=== PATIENT | female | born 1940 | race Caucasian/White ===

== ENCOUNTER 2017-06-30 23:09 | Emergency (ER) | payer MEDICARE, BC ==
[~2017-06-30] VITALS: Ht 154.9 cm; Wt 73.0 kg
[2017-06-30 23:22] VITALS: BP 148/68; PULSE 65; RESP 20; TEMP 97.9; O2SAT 97
[2017-06-30] MEDS ORDERED: LIDOCAINE HCL 1% PF 30 ML VIAL INFIL ONE (23:45)
--- NOTE | 2017-06-30 23:58 | PD ---
HPI Chief Complaint: Foreign Body Time Seen by Provider: 23:41 Travel History International Travel<30 days: No Contact w/Intl Traveler<30days: No Traveled to known affect area: No History of Present Illness HPI 76-year-old female presents to the emergency department for complaint of retained splinter to the right great toe. Injury occurred approximately 2 hours prior to arrival to the emergency department. Attempts at home were unsuccessful at removing the splint her. Patient identifies that she was walking across the floor shuffling her feet in the garage and sustained a puncture wound with a retained splinter. Patient's tetanus status is uncertain. Patient denies any fall or injury. Patient takes no blood thinning agents. PFSH Past Medical History Narrative Medical Arthritis hypertension dyslipidemia CVA vertigo breast cancer appendectomy breast biopsy nursing notes reviewed Arthritis: Yes Cardiovascular Problems: Yes (HTN) High Cholesterol: Yes Diminished Hearing: No GERD: Yes Genitourinary: Yes (BLADDER SPASMS) Hypertension: Yes Neurologic: Yes (VERTIGO) Shingles: Yes Tetanus Vaccination: Unknown Influenza Vaccination: No ?: Not : 1 Para: 1 Past Surgical History Abdominal Surgery: Yes (COLON POLYPS REMOVED X2) Appendectomy: Yes Thoracic Surgery: Yes (L LUNG BIOPSY) Tonsillectomy: Yes Other Surgery: Yes (L BREAST BIOPSY) Social History Alcohol Use: No Tobacco Use: No Substance Use: No Allergies-Medications (Allergen,Severity, Reaction): Coded Allergies: penicillin G (Unverified Allergy, Severe, Anaphylaxis, 03/28/17) Review of Systems Except as stated in HPI: all other systems reviewed are Neg Physical Exam Narrative GENERAL: Well-developed well-nourished female in no acute distress no respiratory distress SKIN: Warm and dry. Attention right great toe plantar surface 2 cm long retained splinter horizontal to the long axis of the toe just under the skin surface. Capillary refill brisk and less than 2 seconds range of motion intact of the digit. MUSCULOSKELETAL: No cyanosis, or edema. Data Data Last Documented VS Vital Signs Date Time Temp Pulse Resp B/P (MAP) Pulse Ox O2 Delivery O2 Flow Rate FiO2 06/30/17 23:32 65 18 06/30/17 23:22 97.9 148/68 (94) 97 Orders Orders Lidocaine Pf 1% Inj (Xylocaine-Mpf 1% In (06/30/17 23:45) Tetanus/Diphtheria Tox Adult (Tetanus/Di (07/01/17 00:30) Sulfamet-Trimeth Ds 800-160 Mg (Bactrim (07/01/17 00:30) MDM Medical Decision Making Medical Screen Exam Complete: Yes Emergency Medical Condition: Yes Medical Record Reviewed: Yes Differential Diagnosis puncture wound of right toe with retained foreign body, splinter Narrative Course After attempting to remove the splinter with tweezer site was cleansed with Betadine 1% lidocaine plain 1 cc was injected at the site for local anesthetic effect 11 blade scalpel was used to incise along the surface of the splinter and the foreign body was removed and site was irrigated aggressively. Patient was given first dose of oral antibiotic Bactrim DS times one dose along with tetanus status update. Bulky dressing was applied patient tolerated procedure well and is stable for outpatient management Diagnosis Primary Impression: Puncture wound of toe, right Qualified Codes: S91.139A - Puncture wound without foreign body of unspecified toe(s) without damage to nail, initial encounter Referrals: Primary Care Physician call for appointment Patient Instructions: General Instructions Med/Other Pt SpecificInfo: Prescription(s) given Scripts Oxycodone-Acetaminophen (Percocet) 5-325 mg Tab 0.5-1 TAB PO Q6H Y for PAIN, #5 TAB 0 Refills Prov: Osiris Amin MD 07/01/17 Sulfamethoxazole-Trimethoprim (Bactrim DS) 800-160 Mg Tab 1 TAB PO BID for Infection, #14 TAB 0 Refills Prov: Osiris Amin MD 07/01/17 Disposition: 01 DISCHARGE HOME Condition: Stable Osiris Amin MD Jun 30, 2017 23:58
[2017-07-01] MEDS ORDERED: PERC5TAB12 PO (00:20)
[2017-07-01] MEDS ORDERED: BACT800T5 PO (00:20)
[2017-07-01] MEDS ORDERED: SULFAMETHOXAZOLE-TRIMETHOPRIM DS 800-160 MG TAB PO ONE (00:30)
[2017-07-01] MEDS ORDERED: TETANUS/DIPHTHERIA TOXOID ADULT 0.5 ML VIAL IM ONE (00:30)
[2017-07-01 00:40] VITALS: BP 138/64; PULSE 66; RESP 18; O2SAT 98
[2017-07-01] MEDS ORDERED: FLUT50SP EACH NARE (03:31)
[2017-07-01] MEDS ORDERED: MECL-62 PO (03:31)
[2017-07-01] MEDS ORDERED: VITA500T4 PO (03:31)
[2017-07-01] MEDS ORDERED: DIPH25CA PO (03:31)
[2017-07-01] MEDS ORDERED: CYAN1TAB21 SL (03:31)
[2017-07-01] MEDS ORDERED: LIDO5%T TOPICAL (03:31)
[2017-07-01] MEDS ORDERED: OXYB5TAB8 PO (03:31)
[2017-07-01] MEDS ORDERED: CALC1TAB87 PO (03:31)
[2017-07-01] MEDS ORDERED: LACT10SO47 PO (03:31)
[2017-07-01] MEDS ORDERED: ASPI81CH6 CHEW (03:31)
[2017-07-01] MEDS ORDERED: METO1TAB42 PO (03:31)
[2017-07-01] MEDS ORDERED: PRIL20TA2 PO (03:31)
[2017-07-01] MEDS ORDERED: PRAV20TA2 PO (03:31)
[2017-07-01] MEDS ORDERED: MULT-65 PO (03:31)
[2017-07-01] MEDS ORDERED: GALA4TAB PO (03:31)
== END 2017-07-01 00:55 | disposition home or self-care (01) ==
LOC: PHED 23:09
DX: S91.141A Puncture wound with foreign body of right great toe without damage to nail, initial encounter (principal); W45.8XXA Other foreign body or object entering through skin, initial encounter; Y92.008 Other place in unspecified non-institutional (private) residence as the place of occurrence of the external cause; Z88.0 Allergy status to penicillin; Z23 Encounter for immunization
CPT/HCPCS: 10120; 90471; 90714

== ENCOUNTER 2017-10-14 12:55 | Emergency (ER) | payer MEDICARE, BC ==
[~2017-10-14] VITALS: Ht 154.9 cm; Wt 74.0 kg
[~2017-10-14 12:55] MED LIST: ASPI81CH6 CHEW; BACT800T5 PO; CALC1TAB87 PO; CYAN1TAB21 SL; DIPH25CA PO; FLUT50SP EACH NARE; GALA4TAB PO; LACT10SO47 PO; LIDO5%T TOPICAL; MECL-62 PO; METO1TAB42 PO; MULT-65 PO; OXYB5TAB8 PO; PERC5TAB12 PO; PRAV20TA2 PO; PRIL20TA2 PO; VITA500T4 PO
[2017-10-14 13:00] VITALS: BP 167/74; PULSE 78; RESP 16; TEMP 98.5; O2SAT 97
--- NOTE | 2017-10-14 13:36 | PD ---
HPI Chief Complaint: Fall Time Seen by Provider: 13:04 Travel History International Travel<30 days: No Contact w/Intl Traveler<30days: No Traveled to known affect area: No History of Present Illness HPI This is a 77-year-old female with a history of breast cancer and vertigo who presents for evaluation of injuries after a fall. The patient states that earlier today, she lost her balance and fell. She struck the left side of her head. No loss of consciousness. She complains of mild pain in the posterior aspect of the left head. Mild pain at left lateral ribs. No new focal weakness , numbness, tingling. Small abrasion on dorsum of left hand with no surrounding pain. Tetanus immunization is up-to-date. Patient states that she uses both a walker and sometimes a wheelchair depending on how she is feeling for the day. She does currently have metastatic breast cancer. Symptoms are mild in severity. Onset with fall. No recent fever, vomiting, diarrhea. No chest pain or shortness of breath. PFSH Past Medical History Hx Anticoagulant Therapy: Yes (BABY ASA) Arthritis: Yes Cardiovascular Problems: Yes (HTN, CHOL) High Cholesterol: Yes Cerebrovascular Accident: Yes (CVA) Diabetes: No Diminished Hearing: No GERD: Yes Genitourinary: Yes (BLADDER SPASMS) Hypertension: Yes Neurologic: Yes (VERTIGO) Shingles: Yes Influenza Vaccination: Yes ?: Not : 1 Para: 1 Past Surgical History Abdominal Surgery: Yes (COLON POLYPS REMOVED X2) Appendectomy: Yes Thoracic Surgery: Yes (L LUNG BIOPSY) Tonsillectomy: Yes Other Surgery: Yes (L BREAST BIOPSY) Social History Alcohol Use: No Tobacco Use: No Substance Use: No Allergies-Medications (Allergen,Severity, Reaction): Coded Allergies: penicillin G (Unverified Allergy, Severe, Anaphylaxis, 10/14/17) Reported Meds & Prescriptions Reported Meds & Active Scripts Active Percocet (Oxycodone-Acetaminophen) 5-325 mg Tab 0.5-1 Tab PO Q6H PRN Bactrim DS (Sulfamethoxazole-Trimethoprim) 800-160 Mg Tab 1 Tab PO BID Reported Vitamin B-12 (Cyanocobalamin) 500 Mcg Tab 500 Mcg PO DAILY Vitamin B-12 Odt (Cyanocobalamin) 5,000 Mcg Tab 5,000 Mcg SL DAILY Prilosec (Omeprazole Magnesium) 20 Mg Tab 1 Cap PO DAILY Pravastatin 20 Mg Tab 10 Mg PO HS Ditropan (Oxybutynin Chloride) 5 Mg Tab 5 Mg PO Q12HR Multi-Vitamin Daily (Multiple Vitamin) 1 Tab Tab 1 Tab PO DAILY Metoprolol Succinate ER 24 HR (Metoprolol Succinate) 25 Mg Tab 12.5 Mg PO DAILY Meclizine (Meclizine HCl) 25 Mg Tab 12.5 Mg PO TID Lidocaine Topical (Lidocaine HCl) 5 % Oint 1 Applic TOPICAL DIRECTED Enulose Liq (Lactulose (Encephalopathy) Liq) 10 Gm/15 Ml Soln 30 Ml PO DAILY Galantamine (Galantamine Hydrobromide) 4 Mg Tab 4 Mg PO BID Fluticasone Nasal [place] 50 Mcg/Act Naspr 50 Mcg EACH NARE BID 50 mcg/spray Calcium 600 with Vitamin D (Calcium Carbonate-Cholecalciferol) 600-400 mg-Unit Tab 2 Tab PO DAILY Diphenhydramine (Diphenhydramine HCl) 25 Mg Cap 25 Mg PO HS PRN Aspirin Low Dose (Aspirin) 81 Mg Chew 81 Mg CHEW DAILY Review of Systems Except as stated in HPI: all other systems reviewed are Neg Physical Exam Narrative GENERAL: Alert, well nourished, well appearing patient resting on the bed in no acute distress. Vital Signs reviewed SKIN: Focused skin assessment warm/dry. Small skin tear on dorsum of left hand. HEAD: Atraumatic. Normocephalic. EYES: Pupils equal and round. No scleral icterus. No injection or drainage. ENT: No nasal bleeding or discharge. Mucous membranes pink and moist. NECK: Trachea midline. No JVD. Spontaneous, painless full range of motion with no meningismus CARDIOVASCULAR: Regular rate and rhythm. No murmur appreciated. Extremities warm and well perfused with bounding peripheral pulses RESPIRATORY: No accessory muscle use. Clear to auscultation. Breath sounds equal bilaterally. Breathing easily and speaking in full sentences Chest wall: No crepitus or deformity. Mild tenderness at left posterior lateral mid ribs GASTROINTESTINAL: Abdomen soft, non-tender, nondistended. Normal bowel sounds. No rigid, rebound, guarding MUSCULOSKELETAL: No obvious deformities. No clubbing. No cyanosis. No edema. Compartments are soft. Painless full range of motion of bilateral upper and lower extremities. No bony tenderness around abrasion. No midline TTP along cervical, thoracic, lumbar spine. NEUROLOGICAL: Awake and alert. No obvious cranial nerve deficits. Motor grossly within normal limits. Normal speech. Sensation intact Data Data Last Documented VS Vital Signs Date Time Temp Pulse Resp B/P (MAP) Pulse Ox O2 Delivery O2 Flow Rate FiO2 10/14/17 13:00 98.5 78 16 167/74 (105) [address] Brain W/O Iv Contrast(Rout) (10/14/17 13:17) Ct Cerv Spine W/O Contrast (10/14/17 13:17) Ribs, Uni (W/Exp Cxr-Min 3vw) (10/14/17 13:17) Spine, Thoracic-Ap/Lat/Sw(3vw) (10/14/17 13:17) Spine, Lumbar Comp W/Obliq (10/14/17 13:17) Ed Discharge Order (10/14/17 15:22) MDM Medical Decision Making Medical Screen Exam Complete: Yes Emergency Medical Condition: Yes Medical Record Reviewed: Yes Interpretation(s) Lumbar spine shows no acute process. Degenerative changes Last 24 hours Impressions Thoracic Spine X-Ray 10/14/171316 Signed Impressions: Service Date/Time: Saturday, October 14, 2017 14:22 - CONCLUSION: Negative for compression fracture. Martin Henry MD FACR Ribs X-Ray 10/14/171316 Signed Impressions: Service Date/Time: Saturday, October 14, 2017 14:22 - CONCLUSION: Negative for fracture. Negative for pneumothorax. Martin Henry MD FACR Head CT 10/14/171316 Signed Impressions: Service Date/Time: Saturday, October 14, 2017 13:44 - CONCLUSION: Negative for acute process Martin Henry MD FACR Cervical Spine CT 10/14/171316 Signed Impressions: Service Date/Time: Saturday, October 14, 2017 13:44 - CONCLUSION: Degenerative changes, negative for fracture. Martin Henry MD FACR Differential Diagnosis Fracture, contusion, sprain, subdural hematoma, abrasion, spinal injury Narrative Course The patient appears very well. She is resting comfortably in no acute distress. She was offered but declined pain medication in the emergency department. Imaging was performed. Patient has no evidence of spinal compromise or focal neurological deficits. She has been drinking fluids in the emergency department without difficulty. I counseled her and her family regarding the results of the workup. Plan for discharge with supportive care and close outpatient follow-up with primary physician in 2 days. She will continue using walker and wheelchair as needed. Patient understands the importance of close outpatient follow-up. She understands she may require further testing and treatment as an outpatient. She understands strict return indications. She is comfortable with this plan and eager to go home. Diagnosis Primary Impression: Minor head injury Qualified Codes: S00.90XA - Unspecified superficial injury of unspecified part of head, initial encounter Additional Impressions: Fall Qualified Codes: W19.XXXA - Unspecified fall, initial encounter Rib contusion Qualified Codes: S20.212A - Contusion of left front wall of thorax, initial encounter Referrals: Primary Care Physician 2 days Patient Instructions: Fall Prevention (ED), General Instructions, Head Injury ( DC), Rib Contusion (ED) Additional Instructions: Use [id number] pain medication as needed. Drink plenty of fluids to stay well hydrated. Continue using walker and wheelchair as needed. Follow-up with primary physician in 2 days for recheck. Return with worsening symptoms. Med/Other Pt SpecificInfo: No Change to Meds Disposition: 01 DISCHARGE HOME Condition: Stable Virginia Max MD Oct 14, 2017 13:36
--- NOTE | 2017-10-14 14:05 | RADRPT ---
EXAM DATE/TIME: 10/14/2017 13:44 [facility] COMPARISON: No previous studies available for comparison. INDICATIONS : Fall, head pain. RADIATION DOSE: 59.70 CTDIvol (mGy) MEDICAL HISTORY : Cerebrovascular disease. Hypertension. Hypercholesterolemia.Vertigo, CVA,Ca breast with mets. SURGICAL HISTORY : Lung bx, Left breast bx, colon polyps ENCOUNTER: Initial ACUITY: 1 day PAIN SCALE: 2/10 LOCATION: cranial TECHNIQUE: Multiple contiguous axial images were obtained of the head. Using automated exposure control and adj ustment of the mA and/or kV according to patient size, radiation dose was kept as low as reasonably a chievable to obtain optimal diagnostic quality images. DICOM format image data is available electro nically for review and comparison. FINDINGS: CEREBRUM: The ventricles are normal for age. No evidence of midline shift, mass lesion, hemorrhage or acute in farction. No extra-axial fluid collections are seen. POSTERIOR FOSSA: The cerebellum and brainstem are intact. The 4th ventricle is midline. The cerebellopontine angle i s unremarkable. EXTRACRANIAL: The visualized portion of the orbits is intact. SKULL: The calvaria is intact. No evidence of skull fracture. CONCLUSION: Negative for acute process Martin Henry MD FACR on October 14, 2017 at 14:04 Board Certified Radiologist. This report was verified electronically.
--- NOTE | 2017-10-14 14:12 | RADRPT ---
EXAM DATE/TIME: 10/14/2017 13:44 [facility] COMPARISON: No previous studies available for comparison. INDICATIONS : Fall, head pain. RADIATION DOSE: 25.98 CTDIvol (mGy) MEDICAL HISTORY : Cerebrovascular disease. Carcinoma, breast. Hypercholesterolemia.HTN,Lung bx, breast bx, colon polyps , mets SURGICAL HISTORY : Cholecystectomy. ENCOUNTER: Initial ACUITY: 1 day PAIN SCALE: 2/10 LOCATION: neck TECHNIQUE: Volumetric scanning of the cervical spine was performed. Multiplanar reconstructions in the sagittal, coronal and oblique axial planes were performed. Using automated exposure control and adjustment o f the mA and/or kV according to patient size, radiation dose was kept as low as reasonably achievable to obtain optimal diagnostic quality images. DICOM format image data is available electronically f or review and comparison. FINDINGS: Anatomic alignment. Mild degenerative changes at C1-C2 without fracture C2-C3: The bony spinal canal is normal in size. No evidence of disc bulge or herniation. The neural forami na are bilaterally patent. C3-C4: The bony spinal canal is normal in size. Mild uncinate ridging is present No evidence of disc bulge or herniation. The neural foramina are bilaterally patent. C4-C5: The bony spinal canal is normal in size. No evidence of disc bulge or herniation. The neural forami na are bilaterally patent. C5-C6: Minimal bulge is present. Neural foramen adequate. Fracture not appreciated. C6-C7: The bony spinal canal is normal in size. No evidence of disc bulge or herniation. The neural forami na are bilaterally patent. C7-T1: The bony spinal canal is normal in size. No evidence of disc bulge or herniation. The neural forami na are bilaterally patent. Sclerosis superior margin T1 CONCLUSION: Degenerative changes, negative for fracture. Martin Henry MD FACR on October 14, 2017 at 14:09 Board Certified Radiologist. This report was verified electronically.
--- NOTE | 2017-10-14 15:07 | RADRPT ---
EXAM DATE/TIME: 10/14/2017 14:22 [facility] COMPARISON: No previous studies available for comparison. INDICATIONS : Pain post fall. MEDICAL HISTORY : None. SURGICAL HISTORY : None. ENCOUNTER: Initial ACUITY: 1 day PAIN SCORE: 10/10 LOCATION: Upper back. FINDINGS: There is normal alignment of the thoracic vertebral bodies. Vertebral body height is maintained. No evidence of fracture or subluxation. Pedicles are intact at all levels. Mild degenerative changes are seen at L1-2. The paravertebral reflections are not thickened. CONCLUSION: Negative for compression fracture. Martin Henry MD FACR on October 14, 2017 at 15:06 Board Certified Radiologist. This report was verified electronically.
--- NOTE | 2017-10-14 15:07 | RADRPT ---
EXAM DATE/TIME: 10/14/2017 14:22 [facility] COMPARISON: No previous studies available for comparison. INDICATIONS : Pain post fall. MEDICAL HISTORY : None. SURGICAL HISTORY : None. ENCOUNTER: Initial ACUITY: 1 day PAIN SCORE: 10/10 LOCATION: Left Ribs. FINDINGS: Multiple views of the left ribs were performed. There is no evidence of displaced fracture. No dest ructive lesions or areas of periosteal thickening are seen. Expiratory view of the chest is negative for pneumothorax. The mediastinal structures are midline. CONCLUSION: Negative for fracture. Negative for pneumothorax. Martin Henry MD FACR on October 14, 2017 at 15:05 Board Certified Radiologist. This report was verified electronically.
--- NOTE | 2017-10-14 15:09 | RADRPT ---
EXAM DATE/TIME: 10/14/2017 14:22 [facility] COMPARISON: No previous studies available for comparison. INDICATIONS : Pain post fall. MEDICAL HISTORY : None. SURGICAL HISTORY : None. ENCOUNTER: Initial ACUITY: 1 day PAIN SCORE: 10/10 LOCATION: Lower back. FINDINGS: Degenerative changes at L1-2 and marked loss of disc space height. Mild degenerative changes at L4-5 and L5-S1. Degenerative changes of facets at L4-5 and L5-S1 SI joints are normal. CONCLUSION: Degenerative changes without fracture. Martin Henry MD FACR on October 14, 2017 at 15:07 Board Certified Radiologist. This report was verified electronically.
== END 2017-10-14 15:59 | disposition home or self-care (01) ==
LOC: PHEFT 12:55
DX: S00.90XA Unspecified superficial injury of unspecified part of head, initial encounter (principal); S20.212A Contusion of left front wall of thorax, initial encounter; S60.512A Abrasion of left hand, initial encounter; W19.XXXA Unspecified fall, initial encounter; C50.919 Malignant neoplasm of unspecified site of unspecified female breast; I10 Essential (primary) hypertension; M19.90 Unspecified osteoarthritis, unspecified site; E78.00 Pure hypercholesterolemia, unspecified; Z86.73 Personal history of transient ischemic attack (TIA), and cerebral infarction without residual deficits
CPT/HCPCS: 70450; 71101; 72072; 72110; 72125; 99284

== ENCOUNTER 2018-06-26 18:57 | Observation (INO) ==
--- NOTE | 2018-06-26 19:11 | ED ---
HPI General Chief complaint: Fall Stated complaint: Fall Time Seen by Provider: 06/26/18 19:05 Source: patient and family Mode of arrival: EMS Limitations: no limitations History of Present Illness HPI narrative: 77-year-old female with history of metastatic breast cancer on [place], followed by hematology/oncology at [facility], brought in by ambulance from home after an unwitnessed fall. Patient was found on the ground. Patient reports that she felt dizzy before falling to the ground, however she does not recall how she fell will recall the entire episode. She complains of mild posterior head, neck, and low back pain. No chest pain or dyspnea. She has been having upper respiratory symptoms including nasal congestion, postnasal drip, and slight cough, and was seen at an urgent care facility earlier today and prescribed azithromycin, however she has not yet started this medication. She denies visual disturbances. No paresthesias or motor deficits. No upper or lower extremity pain or injuries. No history of DVT or PE. She is on 81 mg of aspirin daily. No other antiplatelets or anticoagulants. Related Data Home Medications Medication Instructions Recorded Confirmed denosumab 60 mg SUBCUT QMONTH 06/26/18 06/26/18 galantamine 4 mg PO BID 06/26/18 06/26/18 letrozole 2.5 mg PO DAILY 06/26/18 06/26/18 metoprolol tartrate 50 mg PO DAILY 06/26/18 06/26/18 oxybutynin chloride 5 mg PO DAILY 06/26/18 06/26/18 palbociclib [Ibrance] 75 mg PO DAILY 06/26/18 06/26/18 pravastatin 20 mg PO DAILY 06/26/18 06/26/18 Allergies Allergy/AdvReac Type Severity Reaction Status Date / Time penicillin G Allergy Severe Anaphylaxis Unverified 10/14/17 12:59 Cephalosporins Allergy Rash, Verified 06/26/18 19:25 Generalized Review of Systems ROS: all other systems reviewed are negative [facility] Medical History Medical History Bladder incontinence (Acute) Breast CA (Acute) HTN (hypertension) (Acute) High cholesterol (Acute) Respiratory infection (Acute) Surgical History Surgical History History of appendectomy (Acute) Hx of tonsillectomy (Acute) Social History Social History Substance History: No History of Abuse Second Hand Smoke Exposure: No Smoking Status: Never smoker How Often Do You Have a Drink Containing Alcohol: Never Recent Travel in [facility] within the Last 8 Weeks: No Recent Out of Country Travel within the Last 8 Weeks: No Exam Narrative Exam Narrative: GENERAL: Well-developed, well-nourished, awake, alert, GCS 15, no apparent distress. SKIN: Focused skin assessment warm/dry. No lacerations, abrasions, or ecchymosis. HEAD: Normocephalic. Small posterior scalp hematoma without overlying skin changes with mild tenderness. EYES: Pupils equal, round, 3 mm, reactive to light. EOMI. No scleral icterus. No injection or drainage. ENT: No nasal bleeding or discharge. Mucous membranes pink and moist. NECK: Trachea midline. No JVD. Mild midline cervical spine tenderness without step-off. CARDIOVASCULAR: Regular rate and rhythm. No murmur appreciated. RESPIRATORY: No accessory muscle use. Clear to auscultation. Breath sounds equal bilaterally. GASTROINTESTINAL: Abdomen soft, non-tender, nondistended. MUSCULOSKELETAL: No obvious deformities. No clubbing. No cyanosis. No edema. Mild midline lower thoracic and lumbar spine tenderness without step-off. Pelvis is stable. Normal range of motion in all joints and extreme deformity or tenderness. NEUROLOGICAL: Awake and alert. No obvious cranial nerve deficits. Motor grossly within normal limits. Normal speech. PSYCHIATRIC: Appropriate mood and affect; insight and judgment normal. Course Initial Documented Vital Signs Temperature 97.9 F 06/26/18 19:00 Pulse Rate 75 06/26/18 19:00 Respiratory Rate 18 06/26/18 19:00 Blood Pressure 168/70 H 06/26/18 19:00 Pulse Oximetry 99 06/26/18 19:00 Last Documented Vital Signs Temperature 97.9 F 06/26/18 19:00 Pulse Rate 66 06/26/18 21:09 Respiratory Rate 18 06/26/18 21:09 Blood Pressure 151/66 H 06/26/18 21:09 Pulse Oximetry 97 06/26/18 21:09 Medical Decision Making MDM Narrative Medical decision making narrative: Labs, vitals, and imaging studies were reviewed and were reviewed with the patient and the patient's family. The patient's family were provided a copy of all CT reports, and all findings were discussed in detail. CBC is remarkable for leukopenia with WBC 2.7 as well as slight anemia with a hemoglobin of 10.5. This is likely secondary to the patient's oral chemotherapy. CMP is essentially unremarkable. UA is not suggestive of UTI. CT pulmonary angiogram is negative for PE. Patient has had upper respiratory symptoms and was seen at an urgent care facility today and diagnosed with sinusitis. She has not yet started the azithromycin. Family is concerned about treating her sinusitis. I told him that the CT head does not show significant sinusitis, however because she is immunosuppressed, I will start her on Levaquin. Patient does not recall how she got to the floor and may have had a syncopal episode. Because she is on chemotherapy, she may have cardiomyopathy which led to her syncopal episode. Given her age and history, I would like to observe her in the hospital overnight for further syncope workup. The patient and the patient's family are amenable to this plan. Case discussed with hospitalist Dr. Cesar who will admit the patient to her service. 11:20 PM: After the patient had been admitted to the medical service, the patient began to complain of left hip pain. She did not complain of this pain upon arrival to the emergency department. Patient is able to flex and extend her left hip and knee, however is tender over the left hip joint. Bilateral lower extremities are neurovascularly intact, and the skin is intact. Left hip and pelvis x-rays will be ordered. Left hip xray: CONCLUSION: Osteopenia with no acute fracture or malalignment. Medical Screen Exam Complete: Yes Emergency Medical Condition: Yes Differential Diagnosis Differential Diagnosis: Syncope, near syncope, intracranial trauma, vertebral injury, PE, anemia, UTI, URI, pneumonia, dysrrhythmia Lab Data Result diagrams: 06/26/18 19:30 06/26/18 19:30 Lab Results 06/26/18 06/26/18 06/26/18 Range/Units 19:15 19:30 19:30 CBC w Diff Auto diff final WBC 2.7 L (4.0-11.0) th/mm3 RBC 2.88 L (4.00-5.30) mil/mm3 Hgb 10.5 L (11.6-15.3) gm/dL Hct 31.6 L (35.0-46.0) % MCV 109.7 H (80.0-100.0) fL MCH 36.3 H (27.0-34.0) pg MCHC 33.1 (32.0-36.0) % RDW 14.8 (11.6-17.2) % Plt Count 180 (150-450) th/mm3 MPV 7.6 (7.0-11.0) fL Neut % (Auto) 50.0 (16.0-70.0) % Lymph % (Auto) 42.5 (9.0-44.0) % Richardson % (Auto) 5.1 (0.0-8.0) % Eos % (Auto) 1.0 (0.0-4.0) % Baso % (Auto) 1.4 (0.0-2.0) % Neut # (Auto) 1.5 L (1.8-7.7) th/mm3 Lymph # (Auto) 1.1 (1.0-4.8) th/mm3 Richardson # (Auto) 0.1 (0.0-0.9) th/mm3 Eos # (Auto) 0.0 (0.0-0.4) th/mm3 Baso # (Auto) 0.0 (0.0-0.2) th/mm3 WBC Differential . Differential Comment . PT 9.7 L (9.8-11.6) sec INR 1.0 Ratio APTT 37.8 H (23.4-31.7) sec Sodium (136-145) meq/L Potassium (3.5-5.1) meq/L Chloride (98-107) meq/L Carbon Dioxide (21.0-32.0) meq/L Anion Gap (5-15) meq/L BUN (7-18) mg/dL Creatinine (0.50-1.00) mg/dL Estimated GFR (>89) mL/min Random Glucose (74-106) mg/dL Calcium (8.5-10.1) mg/dL Magnesium (1.5-2.5) mg/dL Total Bilirubin (0.2-1.0) mg/dL AST (15-37) U/L ALT (10-53) U/L Alkaline Phosphatase (45-117) U/L Troponin I (0.02-0.05) ng/mL Total Protein (6.4-8.2) g/dL Albumin (3.4-5.0) g/dL Urine Color Yellow (Yellw/Straw) Urine Clarity Clear (Clear) Urine pH 6.0 (5.0-8.5) Ur Specific [place] Less/equal 1.005 (1.002-1.035) Urine Protein Negative (Neg-Trace) mg/dL Urine Glucose (UA) Negative (Negative) mg/dL Urine Ketones Negative (Negative) mg/dL Urine Occult Blood Trace (Negative) Urine Nitrate Negative (Negative) Urine Bilirubin Negative (Negative) Urine Urobilinogen 0.2 (Less than 2) mg/dL Ur Leukocyte Esterase Small H (Negative) Urine RBC 0-3 (0-3) /hpf Urine WBC 0-5 (0-5) /hpf Ur Squamous Epith Cells 0-5 (0-5) /hpf Ur Microscopic Review Microscopic reviewed 06/26/18 Range/Units 19:30 CBC w Diff WBC (4.0-11.0) th/mm3 RBC (4.00-5.30) mil/mm3 Hgb (11.6-15.3) gm/dL Hct (35.0-46.0) % MCV (80.0-100.0) fL MCH (27.0-34.0) pg MCHC (32.0-36.0) % RDW (11.6-17.2) % Plt Count (150-450) th/mm3 MPV (7.0-11.0) fL Neut % (Auto) (16.0-70.0) % Lymph % (Auto) (9.0-44.0) % Richardson % (Auto) (0.0-8.0) % Eos % (Auto) (0.0-4.0) % Baso % (Auto) (0.0-2.0) % Neut # (Auto) (1.8-7.7) th/mm3 Lymph # (Auto) (1.0-4.8) th/mm3 Richardson # (Auto) (0.0-0.9) th/mm3 Eos # (Auto) (0.0-0.4) th/mm3 Baso # (Auto) (0.0-0.2) th/mm3 WBC Differential Differential Comment PT (9.8-11.6) sec INR Ratio APTT (23.4-31.7) sec Sodium 141 (136-145) meq/L Potassium 3.6 (3.5-5.1) meq/L Chloride 106 (98-107) meq/L Carbon Dioxide 30.4 (21.0-32.0) meq/L Anion Gap 5 (5-15) meq/L BUN 8 (7-18) mg/dL Creatinine 0.83 (0.50-1.00) mg/dL Estimated GFR 67 L (>89) mL/min Random Glucose 107 H (74-106) mg/dL Calcium 8.2 L (8.5-10.1) mg/dL Magnesium 2.4 (1.5-2.5) mg/dL Total Bilirubin 0.2 (0.2-1.0) mg/dL AST 21 (15-37) U/L ALT 28 (10-53) U/L Alkaline Phosphatase 71 (45-117) U/L Troponin I Less than 0.02 L (0.02-0.05) ng/mL Total Protein 7.3 (6.4-8.2) g/dL Albumin 3.7 (3.4-5.0) g/dL Urine Color (Yellw/Straw) Urine Clarity (Clear) Urine pH (5.0-8.5) Ur Specific [place] (1.002-1.035) Urine Protein (Neg-Trace) mg/dL Urine Glucose (UA) (Negative) mg/dL Urine Ketones (Negative) mg/dL Urine Occult Blood (Negative) Urine Nitrate (Negative) Urine Bilirubin (Negative) Urine Urobilinogen (Less than 2) mg/dL Ur Leukocyte Esterase (Negative) Urine RBC (0-3) /hpf Urine WBC (0-5) /hpf Ur Squamous Epith Cells (0-5) /hpf Ur Microscopic Review Imaging Data Radiologist's impression: Cervical Spine CT 06/26/18 19:05 CONCLUSION: 1. No fracture or dislocation. 2. Degenerative changes. 3. Focal area of sclerosis involving the T1 vertebral body is stable from the prior exam. Exact etiology is uncertain. The 8 months of stability suggests a benign etiology such as an atypical appearing bone island. Chest CTA 06/26/18 19:05 CONCLUSION: 1. The study is negative for pulmonary embolism. Chest X-Ray 06/26/18 19:05 CONCLUSION: Small nonspecific opacity in the left costophrenic angle, atelectasis versus fluid. No evidence of pneumothorax. Head CT 06/26/18 19:05 CONCLUSION: 1. No acute intracranial abnormality. 2. Stable chronic small vessel ischemic change. . Lumbar Spine CT 06/26/18 19:05 CONCLUSION: 1. No evidence of fracture, compression deformity, or spondylolisthesis. 2. Mild disc degeneration with bulging. Thoracic Spine CT 06/26/18 19:05 CONCLUSION: 1. No acute abnormality. 2. Old compression fracture of T10 is stable. 3. Focus of sclerosis involving the T1 vertebral body is stable. Stability from the prior examination suggests a benign etiology. This may simply relate to a simple bone island. Hip X-Ray 06/26/18 23:21 CONCLUSION: Osteopenia with no acute fracture or malalignment. ECG Data Attestation: I personally reviewed and interpreted this ECG as follows: Discharge Plan Discharge Disposition Patient Disposition: 30 Still Patient Discharge Condition Condition: Stable Discharge Details Diagnosis: Syncope, Leukopenia, URI (upper respiratory infection) Physicians Team ED Provider: Sumanth Wright Primary Care Provider: Jannet Larsen Attending Provider: Tata Cesar Status ED Status: Admitted Observation Patient
[2018-06-26 19:23] LABS: Bilirubin,Urine Negative (Negative); Clarity,Urine Clear (Clear); Color,Urine Yellow (Yellw/Straw); Glucose,Urine (UA) Negative (Negative); Leukocyte Esterase,Urine Small (Negative); Nitrite,Urine Negative (Negative); Specific Gravity,Urine Less/Equal 1.005 (1.002-1.035); Urobilinogen,Urine 0.2 mg/dL (Less than 2)
[2018-06-26 19:27] LABS: RBC,Urine 0-3 /hpf (0-3); WBC,Urine 0-5 /hpf (0-5)
[2018-06-26 19:28] LABS: Squamous Epithelial Cell,Urine 0-5 /hpf (0-5)
--- NOTE | 2018-06-26 19:45 | XR ---
EXAM DATE: 06/26/2018 7:35 PM EST AGE/SEX: 77 years / Female INDICATIONS: Shortness of breath post fall. CLINICAL DATA: This is the patient's initial encounter. Patient reports that signs and symptoms have been present for 1 day and indicates a pain score of 0/10. MEDICAL/SURGICAL HISTORY: Hypertension. None. COMPARISON: [facility], RIBS LEFT(W PA CXR MIN 3VWS), 10/14/2017. . FINDINGS: The lungs are symmetrically aerated. There is a small opacity in the region of the lateral left costo phrenic angle which could represent atelectasis, infiltrate, or pleural effusion. The right hemidiaph ragm is well delineated. The heart is normal in size. No evidence of pneumothorax. Osseous structures are grossly intact. CONCLUSION: Small nonspecific opacity in the left costophrenic angle, atelectasis versus fluid. No evidence of pn eumothorax. Electronically signed by: Andrews Bhatt MD 06/26/2018 7:44 PM EST
[2018-06-26 19:48] LABS: Baso % (Auto) 1.4 % (0.0-2.0); Hematocrit 31.6 % (35.0-46.0); Hemoglobin 10.5 gm/dL (11.6-15.3); Lymph # (Auto) 1.1 th/mm3 (1.0-4.8); Lymph % (Auto) 42.5 % (9.0-44.0); Mean Corpuscular HGB Conc 33.1 % (32.0-36.0); Mean Corpuscular Hemoglobin 36.3 pg (27.0-34.0); Mean Corpuscular Volume 109.7 fL (80.0-100.0); Mean Platelet Volume 7.6 fL (7.0-11.0); Mono # (Auto) 0.1 th/mm3 (0.0-0.9); Mono % (Auto) 5.1 % (0.0-8.0); Neut # (Auto) 1.5 th/mm3 (1.8-7.7); Platelet Count 180 th/mm3 (150-450); Red Blood Count 2.88 mil/mm3 (4.00-5.30); Red Cell Distribution Width 14.8 % (11.6-17.2); White Blood Count 2.7 th/mm3 (4.0-11.0)
[2018-06-26 19:54] LABS: Chloride 106 meq/L (98-107); Potassium 3.6 meq/L (3.5-5.1); Sodium 141 meq/L (136-145)
[2018-06-26 19:57] LABS: Albumin 3.7 g/dL (3.4-5.0); Anion Gap 5 meq/L (5-15); Calcium 8.2 mg/dL (8.5-10.1); Carbon Dioxide 30.4 meq/L (21.0-32.0); Glucose,Random 107 mg/dL (74-106); Magnesium 2.4 mg/dL (1.5-2.5)
[2018-06-26 19:58] LABS: Blood Urea Nitrogen 8 mg/dL (7-18)
[2018-06-26 20:00] LABS: Activated Partial Thrombo Time 37.8 sec (23.4-31.7); Alanine Aminotransferase 28 U/L (10-53); Aspartate Aminotransferase 21 U/L (15-37); Prothrombin Time 9.7 sec (9.8-11.6)
[2018-06-26 20:01] LABS: Glomerular Filtration Rate 67 mL/min (>89)
[2018-06-26 20:02] LABS: Total Protein 7.3 g/dL (6.4-8.2)
[2018-06-26 20:03] LABS: Alkaline Phosphatase 71 U/L (45-117)
--- NOTE | 2018-06-26 21:02 | CT ---
EXAM DATE: 06/26/2018 8:57 PM EST AGE/SEX: 77 years / Female INDICATIONS: Trauma. Fall. CLINICAL DATA: This is the patient's initial encounter. Patient reports that signs and symptoms have been present for 1 day and indicates a pain score of 4/10. MEDICAL/SURGICAL HISTORY: Carcinoma, breast. Hypertension. Appendectomy. RADIATION DOSE: 59.83 CTDI (mGy) COMPARISON: [facility], CT BRAIN W/O CONTRAST, 10/14/2017. . TECHNIQUE: CT of the head without contrast. Using automated exposure control and adjustment of the mA and/or kV according to patient size, radiation dose was kept as low as reasonably achievable to ob tain optimal diagnostic quality images. DICOM format image data is available electronically for revi ew and comparison. FINDINGS: Cerebrum: Periventricular low attenuation change is unchanged. The ventricles are normal for age. N o evidence of midline shift, mass lesion, hemorrhage or acute infarction. No extraaxial fluid collec tions are seen. Posterior Fossa: The cerebellum and brainstem are intact. The 4th ventricle is midline. The cerebe llopontine angle is unremarkable. Extracranial: The visualized portion of the orbits is intact. Skull: The calvaria is intact. No evidence of skull fracture. CONCLUSION: 1. No acute intracranial abnormality. 2. Stable chronic small vessel ischemic change. . Electronically signed by: Andrews Charlton MD 06/26/2018 9:01 PM EST
--- NOTE | 2018-06-26 21:08 | CT ---
EXAM DATE: 06/26/2018 8:59 PM EST AGE/SEX: 77 years / Female INDICATIONS: Trauma. Fall. CLINICAL DATA: This is the patient's initial encounter. Patient reports that signs and symptoms have been present for 1 day and indicates a pain score of 4/10. MEDICAL/SURGICAL HISTORY: Carcinoma, breast. Hypertension. Appendectomy. RADIATION DOSE: 26.28 CTDI (mGy) COMPARISON: [facility], CT CERVICAL SPINE W/O CONTRAST, 10/14/2017. . TECHNIQUE: Contiguous axial images were obtained using helical multirow detector technique. The vol umetric data was post-processed with multiplanar reconstruction in oblique axial, sagittal, and coron al planes. Using automated exposure control and adjustment of the mA and/or kV according to patient s ize, radiation dose was kept as low as reasonably achievable to obtain optimal diagnostic quality adarsh ges. DICOM format image data is available electronically for review and comparison. FINDINGS: Vertebrae: Normal vertebral body height. An area of sclerosis involving the superior endplate of T1. No bony destruction. This appearance is stable from the prior study. Alignment: Normal. No subluxation. Calcified plaque involving the carotid arteries bilaterally. C2-3: Mild central bulge. No abutment of the cord or central canal stenosis. Bony uncovertebral hype rtrophy without significant neural foraminal narrowing.. C3-4: Mild central bulge without central canal stenosis. Bony uncovertebral hypertrophy without neur al foraminal narrowing. C4-5: Mild central bulge without central canal stenosis. Bony uncovertebral hypertrophy with mild na rrowing the right neural foramen. The left remains patent.. C5-6: The bony spinal canal is normal in size. No evidence of disc bulge or herniation. The neural foramina are bilaterally patent. C6-7: The bony spinal canal is normal in size. No evidence of disc bulge or herniation. The neural foramina are bilaterally patent. C7-T1: The bony spinal canal is normal in size. No evidence of disc bulge or herniation. The neura l foramina are bilaterally patent. CONCLUSION: 1. No fracture or dislocation. 2. Degenerative changes. 3. Focal area of sclerosis involving the T1 vertebral body is stable from the prior exam. Exact etio logy is uncertain. The 8 months of stability suggests a benign etiology such as an atypical appearing bone island. Electronically signed by: Andrews Charlton MD 06/26/2018 9:07 PM EST
--- NOTE | 2018-06-26 21:12 | CT ---
EXAM DATE: 06/26/2018 9:05 PM EST AGE/SEX: 77 years / Female INDICATIONS: Trauma. Fall. CLINICAL DATA: This is the patient's initial encounter. Patient reports that signs and symptoms have been present for 1 day and indicates a pain score of 4/10. MEDICAL/SURGICAL HISTORY: Carcinoma, breast. Hypertension. Appendectomy. RADIATION DOSE: 17.07 CTDI (mGy) COMPARISON: No prior exams available for comparison. TECHNIQUE: Volumetric scanning was performed using a multi-row detector CT scanner during bolus infu jessie of 100 ml Omnipaque 350 (iohexol) nonionic water-soluble contrast as a cumulative dose for mult iple exams. The data was post processed with a variety of visualization algorithms including full vol ume maximum intensity projection and sliding thin slab reformation. Using automated exposure control and adjustment of the mA and/or kV according to patient size, radiation dose was kept as low as reaso nably achievable to obtain optimal diagnostic quality images. DICOM format image data is available e lectronically for review and comparison. FINDINGS: Pulmonary Arteries: No filling defects are seen in the pulmonary arteries out to the subsegmental ve ssels. The left and right pulmonary arteries are normal in diameter. Lung: No pneumothorax. No infiltrates seen. In particular, no focal opacity in the left costophrenic angle. Effusion: None. Mediastinum: No evidence of mediastinal or hilar adenopathy. Other: No fracture seen. CONCLUSION: 1. The study is negative for pulmonary embolism. Electronically signed by: Andrews Bhatt MD 06/26/2018 9:10 PM EST
--- NOTE | 2018-06-26 21:15 | CT ---
EXAM DATE: 06/26/2018 9:09 PM EST AGE/SEX: 77 years / Female INDICATIONS: Trauma. Fall. CLINICAL DATA: This is the patient's initial encounter. Patient reports that signs and symptoms have been present for 1 day and indicates a pain score of 4/10. MEDICAL/SURGICAL HISTORY: Carcinoma, breast. Hypertension. Appendectomy. RADIATION DOSE: 24.86 CTDI (mGy) COMPARISON: No prior exams available for comparison. TECHNIQUE: Contiguous axial images were acquired with a multirow detector CT scanner without contras t. Multiplanar reconstructions in the sagittal and coronal plane were also performed. Using automate d exposure control and adjustment of the mA and/or kV according to patient size, radiation dose was k ept as low as reasonably achievable to obtain optimal diagnostic quality images. DICOM format image data is available electronically for review and comparison. FINDINGS: There is normal alignment of the vertebral bodies of the lumbar spine and preservation of vertebral b saud height. Anterior interspace narrowing and endplate sclerosis is present at L1 to. The posterior e lements are in normal alignment without evidence of pars defect. Asymmetric sclerosis in the posterio r right SI joint. Mild facet joint hypertrophy L4-S1. No fracture seen. T12-L1: The thecal sac has a normal diameter. No evidence of disc bulge or protrusion. The neural foramina are patent bilaterally. L1-L2: Mild bulging of the disc flattens the left margin of the thecal sac. Neural foramen remain pa tent. No disc protrusion seen. L2-L3: Mild broad-based bulging of the disc without significant deformity of the thecal sac. No foca l disc protrusion. L3-L4: Mild broad-based bulging of the disc without significant deformity of the thecal sac. The chuck ral foramina are patent. L4-L5: Mild bulging of the disc without significant deformity of the thecal sac. The neural foramina patent. L5-S1: The thecal sac has a normal diameter. No evidence of disc bulge or protrusion. The neural f oramina are patent bilaterally. CONCLUSION: 1. No evidence of fracture, compression deformity, or spondylolisthesis. 2. Mild disc degeneration with bulging. Electronically signed by: Andrews Bhatt MD 06/26/2018 9:14 PM EST
--- NOTE | 2018-06-26 21:42 | CT ---
EXAM DATE: 06/26/2018 9:32 PM EST AGE/SEX: 77 years / Female INDICATIONS: Trauma. Fall. CLINICAL DATA: This is the patient's initial encounter. Patient reports that signs and symptoms have been present for 1 day and indicates a pain score of 4/10. MEDICAL/SURGICAL HISTORY: Carcinoma, breast. Hypertension. Appendectomy. RADIATION DOSE: 0.0 CTDI (mGy) ; Reconstructed from previous dataset, no dose COMPARISON: [facility], CT CERVICAL SPINE W/O CONTRAST, 10/14/2017.. Lumbar spine x-rays 10/14/2017 . TECHNIQUE: Contiguous axial images were acquired using a multirow detector CT scanner after intraven ous administration of 100 ml Omnipaque 350 (iohexol) nonionic water-soluble contrast as a cumulative dose for multiple exams. Multiplanar reconstruction in the sagittal and coronal planes was perform ed. Using automated exposure control and adjustment of the mA and/or kV according to patient size, r adiation dose was kept as low as reasonably achievable to obtain optimal diagnostic quality images. DICOM format image data is available electronically for review and comparison. FINDINGS: Vertebrae: An old compression deformity of T10 is unchanged. There is 10-20% loss of height of the s uperior endplate.. A focal area of sclerosis is seen involving the superior endplate of the T1 verteb ral body Alignment: Normal. No subluxation. Post Contrast: No abnormal areas of enhancement are seen in the cord, dural or paraspinal regions. T1 - T2: Normal. T2 - T3: The thecal sac has a normal diameter. No evidence of disc bulge or protrusion. T3 - T4: The thecal sac has a normal diameter. No evidence of disc bulge or protrusion. T4 - T5: The thecal sac has a normal diameter. No evidence of disc bulge or protrusion. T5 - T6: The thecal sac has a normal diameter. No evidence of disc bulge or protrusion. T6 - T7: The thecal sac has a normal diameter. No evidence of disc bulge or protrusion. T7 - T8: The thecal sac has a normal diameter. No evidence of disc bulge or protrusion. T8 - T9: The thecal sac has a normal diameter. No evidence of disc bulge or protrusion. T9 - T10: The thecal sac has a normal diameter. No evidence of disc bulge or protrusion. T10 - T11: The thecal sac has a normal diameter. No evidence of disc bulge or protrusion. T11 - T12: The thecal sac has a normal diameter. No evidence of disc bulge or protrusion. T12 - L1: The thecal sac has a normal diameter. No evidence of disc bulge or protrusion. CONCLUSION: 1. No acute abnormality. 2. Old compression fracture of T10 is stable. 3. Focus of sclerosis involving the T1 vertebral body is stable. Stability from the prior examinatio n suggests a benign etiology. This may simply relate to a simple bone island. Electronically signed by: Andrews Charlton MD 06/26/2018 9:41 PM EST
[2018-06-26] MEDS ORDERED: levoFLOXacin 750 MG Tablet PO ONE (22:09)
[2018-06-26] MEDS ORDERED: Acetaminophen 500 MG Tablet PO ONE (23:52)
--- NOTE | 2018-06-27 | XR ---
EXAM DATE: 06/26/2018 11:47 PM EST AGE/SEX: 77 years / Female INDICATIONS: Status post fall, left hip pain. CLINICAL DATA: This is the patient's initial encounter. Patient reports that signs and symptoms have been present for 1 day and indicates a pain score of 8/10. MEDICAL/SURGICAL HISTORY: None. None. COMPARISON: [facility], CT LUMBAR SPINE W/O CONTRAST, 06/26/2018. . FINDINGS: Bony structures are intact and in normal alignment. Joints are intact without dislocation or signifi cant arthropathy. There is mild osteopenia. Excreted contrast is noted in the bladder. Soft tissues a re unremarkable. No radiopaque foreign bodies seen. CONCLUSION: Osteopenia with no acute fracture or malalignment. Electronically signed by: Darío Wallace MD 06/26/2018 11:59 PM EST
[2018-06-27 06:20] LABS: Baso % (Auto) 0.7 % (0.0-2.0); Eos % (Auto) 1.1 % (0.0-4.0); Hematocrit 31.5 % (35.0-46.0); Hemoglobin 10.4 gm/dL (11.6-15.3); Lymph # (Auto) 1.1 th/mm3 (1.0-4.8); Lymph % (Auto) 32.3 % (9.0-44.0); Mean Corpuscular HGB Conc 33.2 % (32.0-36.0); Mean Corpuscular Hemoglobin 36.4 pg (27.0-34.0); Mean Corpuscular Volume 109.4 fL (80.0-100.0); Mean Platelet Volume 7.4 fL (7.0-11.0); Mono # (Auto) 0.2 th/mm3 (0.0-0.9); Mono % (Auto) 5.7 % (0.0-8.0); Neut % (Auto) 60.2 % (16.0-70.0); Platelet Count 169 th/mm3 (150-450); Red Blood Count 2.87 mil/mm3 (4.00-5.30); Red Cell Distribution Width 15.1 % (11.6-17.2); White Blood Count 3.3 th/mm3 (4.0-11.0)
[2018-06-27 06:24] LABS: Potassium 3.7 meq/L (3.5-5.1)
[2018-06-27 06:29] LABS: Carbon Dioxide 27.4 meq/L (21.0-32.0)
--- NOTE | 2018-06-27 09:12 | US ---
EXAM DATE: 06/27/2018 9:03 AM EST AGE/SEX: 77 years / Female INDICATIONS: Syncope. CLINICAL DATA: This is the patient's initial encounter. Patient reports that signs and symptoms have been present for 1 day and indicates a pain score of 0/10. MEDICAL/SURGICAL HISTORY: Hypertension. Hypercholesterolemia. Metastatic breast cancer. Appen dectomy. Tonsillectomy. COMPARISON: No prior exams available for comparison. VELOCITY PARAMETERS: ICA/CCA Ratio: Right 0.9 , Left 1.1 ICA: Right 97 cm/sec, Left 126 cm/sec CCA: Right 110 cm/sec, Left 110 cm/sec ECA: Right 154 cm/sec, Left 114 cm/sec Vertebral: Right 48 cm/sec antegrade, Left 43 cm/sec antegrade FINDINGS: Right Carotid: Mild arteriosclerotic plaque is visualized.The waveforms are within normal limits. Left Carotid: Mild arteriosclerotic plaque is visualized. The waveforms are within normal limits. Other: None. CONCLUSION: 1. Right Internal Carotid Artery: Findings indicate <50% stenosis. 2. Left Internal Carotid Artery: Findings indicate <50% stenosis. Electronically signed by: Otf Sanchez MD 06/27/2018 9:11 AM EST
--- NOTE | 2018-06-27 12:31 | ECG ---
Date Performed: 06/26/2018 Time Performed: 19:20:34 PTAGE: 77 years EKG: Sinus rhythm NORMAL ECG NO PREVIOUS TRACING DOCTOR: Otf Wilson Interpretating Date/Time 06/27/2018 12:29:00
--- NOTE | 2018-06-27 15:33 | P.PNIM ---
Subjective Interval history: Patient is sitting upright in bed. She does not have any complaints today. Physical Exam Vital signs: Vital Signs 06/26/18 19:00 06/26/18 19:47 06/26/18 20:00 Temperature 97.9 F Pulse Rate 75 68 64 Respiratory Rate 18 18 Blood Pressure 168/70 H 140/67 Pulse Oximetry 99 06/26/18 21:09 06/26/18 22:39 06/26/18 23:00 Temperature Pulse Rate 66 69 68 Respiratory Rate 18 18 Blood Pressure 151/66 H 153/78 H Pulse Oximetry 97 06/27/18 01:10 06/27/18 04:00 06/27/18 08:00 Temperature 96.5 F L 97.4 F L 97.8 F Pulse Rate 73 69 83 Respiratory Rate 16 16 20 Blood Pressure 194/79 H 145/67 H 160/67 H Pulse Oximetry 97 97 93 L 06/27/18 12:00 Temperature 98.1 F Pulse Rate 89 Respiratory Rate 20 Blood Pressure 136/72 Pulse Oximetry 94 L Intake & Output 06/26/18 06/27/18 06/27/18 18:59 06:59 18:59 Intake Total 420 / 420 Output Total 1200 / 1200 Balance -780 / -780 Weight 75.4 kg Intake: Oral 420 / 420 Output: Urine 1200 / 1200 Other: # Voids 2 Weight On Admission 75.4 kg Narrative: General patient in no acute distress HEENT extraocular movements are intact, clear oropharyngeal mucosa, no JVD Cardiovascular S1-S2 audible, RRR, no murmurs rubs or gallops Respiratory clear to auscultation bilaterally Abdomen soft, nontender, nondistended, normal bowel sounds Extremities no edema 2+ distal pulses in bilateral upper and lower extremities Neuro cranial nerves II through XII intact Results - Labs CBC & Chem 7: 06/27/18 06:00 06/27/18 06:00 Laboratory Results - last 24 hr 06/26/18 06/26/18 06/26/18 19:15 19:30 19:30 CBC w Diff Auto diff final WBC 2.7 L RBC 2.88 L Hgb 10.5 L Hct 31.6 L MCV 109.7 H MCH 36.3 H MCHC 33.1 RDW 14.8 Plt Count 180 MPV 7.6 Neut % (Auto) 50.0 Lymph % (Auto) 42.5 [place] % (Auto) 5.1 Eos % (Auto) 1.0 Baso % (Auto) 1.4 Neut # (Auto) 1.5 L Lymph # (Auto) 1.1 [place] # (Auto) 0.1 Eos # (Auto) 0.0 Baso # (Auto) 0.0 WBC Differential . Differential Comment . PT 9.7 L INR 1.0 APTT 37.8 H Sodium Potassium Chloride Carbon Dioxide Anion Gap BUN Creatinine Estimated GFR Random Glucose Calcium Magnesium Total Bilirubin AST ALT Alkaline Phosphatase Troponin I Total Protein Albumin Urine Color Yellow Urine Clarity Clear Urine pH 6.0 Ur Specific [place] Less/equal 1.005 Urine Protein Negative Urine Glucose (UA) Negative Urine Ketones Negative Urine Occult Blood Trace Urine Nitrate Negative Urine Bilirubin Negative Urine Urobilinogen 0.2 Ur Leukocyte Esterase Small H Urine RBC 0-3 Urine WBC 0-5 Ur Squamous Epith Cells 0-5 Ur Microscopic Review Microscopic reviewed 06/26/18 06/27/18 06/27/18 19:30 06:00 06:00 CBC w Diff Auto diff final WBC 3.3 L RBC 2.87 L Hgb 10.4 L Hct 31.5 L MCV 109.4 H MCH 36.4 H MCHC 33.2 RDW 15.1 Plt Count 169 MPV 7.4 Neut % (Auto) 60.2 Lymph % (Auto) 32.3 [place] % (Auto) 5.7 Eos % (Auto) 1.1 Baso % (Auto) 0.7 Neut # (Auto) 2.0 Lymph # (Auto) 1.1 [place] # (Auto) 0.2 Eos # (Auto) 0.0 Baso # (Auto) 0.0 WBC Differential . Differential Comment . PT INR APTT Sodium 141 142 Potassium 3.6 3.7 Chloride 106 108 H Carbon Dioxide 30.4 27.4 Anion Gap 5 7 BUN 8 9 Creatinine 0.83 0.76 Estimated GFR 67 L 74 L Random Glucose 107 H 97 Calcium 8.2 L 8.0 L Magnesium 2.4 Total Bilirubin 0.2 AST 21 ALT 28 Alkaline Phosphatase 71 Troponin I Less than 0.02 L Total Protein 7.3 Albumin 3.7 Urine Color Urine Clarity Urine pH Ur Specific [place] Urine Protein Urine Glucose (UA) Urine Ketones Urine Occult Blood Urine Nitrate Urine Bilirubin Urine Urobilinogen Ur Leukocyte Esterase Urine RBC Urine WBC Ur Squamous Epith Cells Ur Microscopic Review Microbiology 06/26/18 23:03 Nasal Wash Influenza Types A,B Antigen - Final Negative for FLU A and B antigen Infection due to influenza A or B cannot be ruled out since the antigen present in the sample may be below the detection limit of the test. - Imaging Impressions Cervical Spine CT 06/26/18 19:05 CONCLUSION: 1. No fracture or dislocation. 2. Degenerative changes. 3. Focal area of sclerosis involving the T1 vertebral body is stable from the prior exam. Exact etiology is uncertain. The 8 months of stability suggests a benign etiology such as an atypical appearing bone island. Chest CTA 06/26/18 19:05 CONCLUSION: 1. The study is negative for pulmonary embolism. Chest X-Ray 06/26/18 19:05 CONCLUSION: Small nonspecific opacity in the left costophrenic angle, atelectasis versus fluid. No evidence of pneumothorax. Head CT 06/26/18 19:05 CONCLUSION: 1. No acute intracranial abnormality. 2. Stable chronic small vessel ischemic change. . Lumbar Spine CT 06/26/18 19:05 CONCLUSION: 1. No evidence of fracture, compression deformity, or spondylolisthesis. 2. Mild disc degeneration with bulging. Thoracic Spine CT 06/26/18 19:05 CONCLUSION: 1. No acute abnormality. 2. Old compression fracture of T10 is stable. 3. Focus of sclerosis involving the T1 vertebral body is stable. Stability from the prior examination suggests a benign etiology. This may simply relate to a simple bone island. Hip X-Ray 06/26/18 23:21 CONCLUSION: Osteopenia with no acute fracture or malalignment. Carotid Doppler Study 06/27/18 00:00 CONCLUSION: 1. Right Internal Carotid Artery: Findings indicate <50% stenosis. 2. Left Internal Carotid Artery: Findings indicate <50% stenosis. Assessment and Plan - Plan This patient is a 81-year-old female with a diagnosis of metastatic breast cancer on [facility]. Patient follows up with hematology oncology at [facility]. She was brought in by ambulance after the patient suffered a unwitnessed fall at her home. The patient's history was obtained by the patient as well as her daughter who is at bedside. She uses a for a walker at home and after discussion about the incidence it appears she suffered a mechanical fall at home. The patient says she tried to turn quickly lost her balance and ended up falling down hitting her head on the ground. She did not lose consciousness during the episode. She was evaluated in the emergency department and subsequently placed under observation for 24 hours. 1. Mechanical fall Patient presented with the symptoms mentioned above. In the emergency department the patient underwent a CT scan of the head which did not show any significant abnormality's. CT of the C-spine lumbar spine and thoracic spine showed only a old compression fracture of T10, patient has no complaints of thoracic pain, or back pain. CT of the chest was also done which was negative. She had some complaints of hip pain however imaging of the hips did not show any abnormalities. EKG was done which showed normal sinus rhythm. No acute ST segment or T wave changes. Troponins were negative. She has been a symptomatic since admission. I do not believe this was a cardiac related presyncopal or syncopal episode. I evaluated the patient and watch her ambulate with a frontwheel walker. She does not have any difficulty ambulating. The patient's daughter is at bedside and believes she is currently at her baseline. Patient has good support at home and is always accompanied by somebody. The patient will be discharged home today. She was advised to seek medical attention and return to the emergency department if she has another similar episode, or experiences any dizziness. 2. Metastatic breast cancer Patient can continue Ibance, she can then follow-up at [facility] with hematology oncology. 3. Sinusitis Patient did receive Levaquin when she first arrived for questionable sinusitis. Patient currently does not have any symptoms and I do not believe she needs antibiotics on discharge. She was advised to follow-up with her primary care doctor in 1 week. If she begins to have fevers or chills then consideration regarding antibiotics can be addressed. Again currently the patient is asymptomatic
--- NOTE | 2018-06-27 15:40 | P.HPIM ---
History of Present Illness Primary Care Physician: Jannet Larsen MD History of Present Illness: This patient is a 81-year-old female with a diagnosis of metastatic breast cancer on [facility]. Patient follows up with hematology oncology at [facility]. She was brought in by ambulance after the patient suffered a unwitnessed fall at her home. The patient's history was obtained by the patient as well as her daughter who is at bedside. She uses a for a walker at home and after discussion about the incidence it appears she suffered a mechanical fall at home. The patient says she tried to turn quickly lost her balance and ended up falling down hitting her head on the ground. She did not lose consciousness during the episode. She was evaluated in the emergency department and subsequently placed under observation for 24 hours. No fevers or chills, no chest pain, no shortness of breath, no diarrhea. Past medical history metastatic breast cancer, patient follows up with heme oncology at [facility] Family history significant for rectal cancer in her mother. Review of Systems All other systems reviewed negative except as stated in HPI PMFSH - History History Provided By: Patient, Family Member - Medical History Medical History: Medical History (Last Updated 06/26/18 @ 19:28 by Deidre Luna RN) Bladder incontinence Breast CA HTN (hypertension) High cholesterol Respiratory infection - Surgical History Surgical History: Surgical History (Last Updated 06/26/18 @ 19:28 by Deidre Luna RN) History of appendectomy Hx of tonsillectomy - Tobacco History Second Hand Smoke Exposure: No Tobacco Use In Past 30 Days: No Smoking Status: Never smoker - Alcohol History How Often Do You Have a Drink Containing Alcohol: Never - Substance Use History Substance History: No History of Abuse - Travel History Recent Travel in the [place] Within the Last 8 Weeks: No Recent Travel Out of the Country Within the Last 8 Weeks: No - Immunization History Tetanus Immunization: <5 Years Hx Influenza Vaccine This Season: No Medications and Allergies Allergies Allergy/AdvReac Type Severity Reaction Status Date / Time penicillin G Allergy Severe Anaphylaxis Verified 06/27/18 00:05 Cephalosporins Allergy Rash, Verified 06/27/18 00:05 Generalized Home Medications Medication Instructions Recorded Confirmed Type denosumab 60 mg SUBCUT QMONTH 06/26/18 06/26/18 History galantamine 4 mg PO BID 06/26/18 06/26/18 History letrozole 2.5 mg PO DAILY 06/26/18 06/26/18 History metoprolol tartrate 50 mg PO DAILY 06/26/18 06/26/18 History oxybutynin chloride 5 mg PO DAILY 06/26/18 06/26/18 History palbociclib [Ibrance] 75 mg PO DAILY 06/26/18 06/26/18 History pravastatin 20 mg PO DAILY 06/26/18 06/26/18 History Exam Vital signs: Vital Signs 06/26/18 19:00 06/26/18 19:47 06/26/18 20:00 Temperature 97.9 F Pulse Rate 75 68 64 Respiratory Rate 18 18 Blood Pressure 168/70 H 140/67 Pulse Oximetry 99 06/26/18 21:09 06/26/18 22:39 06/26/18 23:00 Temperature Pulse Rate 66 69 68 Respiratory Rate 18 18 Blood Pressure 151/66 H 153/78 H Pulse Oximetry 97 06/27/18 01:10 06/27/18 04:00 06/27/18 08:00 Temperature 96.5 F L 97.4 F L 97.8 F Pulse Rate 73 69 83 Respiratory Rate 16 16 20 Blood Pressure 194/79 H 145/67 H 160/67 H Pulse Oximetry 97 97 93 L 06/27/18 12:00 Temperature 98.1 F Pulse Rate 89 Respiratory Rate 20 Blood Pressure 136/72 Pulse Oximetry 94 L Intake & Output 06/26/18 06/27/18 06/27/18 18:59 06:59 18:59 Intake Total 420 / 420 Output Total 1200 / 1200 Balance -780 / -780 Weight 75.4 kg Intake: Oral 420 / 420 Output: Urine 1200 / 1200 Other: # Voids 2 Weight On Admission 75.4 kg Results - Labs CBC & Chem 7: 06/27/18 06:00 06/27/18 06:00 Labs: Short CBC 06/26/18 06/27/18 Range/Units 19:30 06:00 WBC 2.7 L 3.3 L (4.0-11.0) th/mm3 Hgb 10.5 L 10.4 L (11.6-15.3) gm/dL Hct 31.6 L 31.5 L (35.0-46.0) % Plt Count 180 169 (150-450) th/mm3 [facility] 06/26/18 06/27/18 19:30 06:00 Sodium 141 142 Potassium 3.6 3.7 Chloride 106 108 H Carbon Dioxide 30.4 27.4 BUN 8 9 Creatinine 0.83 0.76 Calcium 8.2 L 8.0 L Cardiac Enzymes 06/26/18 Range/Units 19:30 Troponin I Less than 0.02 L (0.02-0.05) ng/mL Liver Function 06/26/18 Range/Units 19:30 Total Bilirubin 0.2 (0.2-1.0) mg/dL AST 21 (15-37) U/L ALT 28 (10-53) U/L Alkaline Phosphatase 71 (45-117) U/L Albumin 3.7 (3.4-5.0) g/dL Urine 06/26/18 Range/Units 19:15 Urine Color Yellow (Yellw/Straw) Urine Clarity Clear (Clear) Urine pH 6.0 (5.0-8.5) Ur Specific [place] Less/equal 1.005 (1.002-1.035) Urine Protein Negative (Neg-Trace) mg/dL Urine Glucose (UA) Negative (Negative) mg/dL - Imaging Impressions Cervical Spine CT 06/26/18 19:05 CONCLUSION: 1. No fracture or dislocation. 2. Degenerative changes. 3. Focal area of sclerosis involving the T1 vertebral body is stable from the prior exam. Exact etiology is uncertain. The 8 months of stability suggests a benign etiology such as an atypical appearing bone island. Chest CTA 06/26/18 19:05 CONCLUSION: 1. The study is negative for pulmonary embolism. Chest X-Ray 06/26/18 19:05 CONCLUSION: Small nonspecific opacity in the left costophrenic angle, atelectasis versus fluid. No evidence of pneumothorax. Head CT 06/26/18 19:05 CONCLUSION: 1. No acute intracranial abnormality. 2. Stable chronic small vessel ischemic change. . Lumbar Spine CT 06/26/18 19:05 CONCLUSION: 1. No evidence of fracture, compression deformity, or spondylolisthesis. 2. Mild disc degeneration with bulging. Thoracic Spine CT 06/26/18 19:05 CONCLUSION: 1. No acute abnormality. 2. Old compression fracture of T10 is stable. 3. Focus of sclerosis involving the T1 vertebral body is stable. Stability from the prior examination suggests a benign etiology. This may simply relate to a simple bone island. Hip X-Ray 06/26/18 23:21 CONCLUSION: Osteopenia with no acute fracture or malalignment. Carotid Doppler Study 06/27/18 00:00 CONCLUSION: 1. Right Internal Carotid Artery: Findings indicate <50% stenosis. 2. Left Internal Carotid Artery: Findings indicate <50% stenosis. Caprini VTE Risk Assessment Caprini VTE Risk Assessment: Moderate/High Risk (score >= 2) Caprini Risk Assessment Model: Point Value = 1 Point Value = 2 Point Value = 3 Point Value = 5 Age 41-60 Minor surgery BMI > 25 kg/m2 Swollen legs Varicose veins or History of unexplained or recurrent spontaneous Oral contraceptives or hormone replacement Sepsis (< 1 month) Serious lung disease, including pneumonia (< 1 month) Abnormal pulmonary function Acute myocardial infarction Congestive heart failure (< 1 month) History of inflammatory bowel disease Medical patient at bed rest Age 61-74 Arthroscopic surgery Major open surgery (> 45 min) Laparoscopic surgery (> 45 min) Malignancy Confined to bed (> 72 hours) Immobilizing plaster cast Central venous access Age >= 75 History of VTE Family history of VTE Factor V Leiden Prothrombin [id number] Lupus anticoagulant Anticardiolipin antibodies Elevated serum homocysteine Heparin-induced thrombocytopenia Other congenital or acquired thrombophilia Stroke (< 1 month) Elective arthroplasty Hip, pelvis, or leg fracture Acute spinal cord injury (< 1 month) Prophylaxis Regimen: Total Risk Factor Score Risk Level Prophylaxis Regimen 0-1 Low Early ambulation 2 Moderate Order ONE of the following: *Sequential Compression Device (SCD) *Heparin 5000 units SQ BID 3-4 Higher Order ONE of the following medications: *Heparin 5000 units SQ TID *Enoxaparin/Lovenox 40 mg SQ daily (WT < 150 kg, CrCl > 30 mL/min) *Enoxaparin/Lovenox 30 mg SQ daily (WT < 150 kg, CrCl > 10-29 mL/min) *Enoxaparin/Lovenox 30 mg SQ BID (WT < 150 kg, CrCl > 30 mL/min) AND/OR *Sequential Compression Device (SCD) 5 or more Highest Order ONE of the following medications: *Heparin 5000 units SQ TID (Preferred with Epidurals) *Enoxaparin/Lovenox 40 mg SQ daily (WT < 150 kg, CrCl > 30 mL/min) *Enoxaparin/Lovenox 30 mg SQ daily (WT < 150 kg, CrCl > 10-29 mL/min) *Enoxaparin/Lovenox 30 mg SQ BID (WT < 150 kg, CrCl > 30 mL/min) AND *Sequential Compression Device (SCD) Assessment and Plan - Plan This patient is a 81-year-old female with a diagnosis of metastatic breast cancer on [facility]. Patient follows up with hematology oncology at [facility]. She was brought in by ambulance after the patient suffered a unwitnessed fall at her home. The patient's history was obtained by the patient as well as her daughter who is at bedside. She uses a for a walker at home and after discussion about the incidence it appears she suffered a mechanical fall at home. The patient says she tried to turn quickly lost her balance and ended up falling down hitting her head on the ground. She did not lose consciousness during the episode. She was evaluated in the emergency department and subsequently placed under observation for 24 hours. 1. Mechanical fall Patient presented with the symptoms mentioned above. In the emergency department the patient underwent a CT scan of the head which did not show any significant abnormality's. CT of the C-spine lumbar spine and thoracic spine showed only a old compression fracture of T10, patient has no complaints of thoracic pain, or back pain. CT of the chest was also done which was negative. She had some complaints of hip pain however imaging of the hips did not show any abnormalities. EKG was done which showed normal sinus rhythm. No acute ST segment or T wave changes. Troponins were negative. She has been a symptomatic since admission. I do not believe this was a cardiac related presyncopal or syncopal episode. 2. Metastatic breast cancer Patient can continue Ibance, she can then follow-up at [facility] with hematology oncology. 3. Sinusitis Patient did receive Levaquin when she first arrived for questionable sinusitis. Patient currently does not have any symptoms and I do not believe she needs antibiotics on discharge. H&P: Quality - VTE Deep Vein Thrombosis/Pulmonary Embolism Present on Admission: No
--- NOTE | 2018-06-27 18:21 | ECHRPT ---
Indication: SYNCOPE CONCLUSIONS The left ventricular systolic function is normal with an estimated ejection fraction in the range of 60-65%. Mild concentric left ventricular hypertrophy. Doppler parameters are consistent with impaired left ventricular relaxtion (grade 1 diastolic dysfun ction). Trace aortic valve regurgitation. BP: / HR: Rhythm: MEASUREMENTS (Male / Female) Normal Values Technical Quality: 2D ECHO LV Diastolic Diameter PLAX 3.5 cm 4.2 - 5.9 / 3.9 - 5.3 cm LV Systolic Diameter PLAX 2.5 cm IVS Diastolic Thickness 1.2 cm 0.6 - 1.0 / 0.6 - 0.9 cm LVPW Diastolic Thickness 1.2 cm 0.6 - 1.0 / 0.6 - 0.9 cm LV Relative Wall Thickness 0.7 LVOT Diameter 1.7 cm LA Systolic Diameter LX 3.0 cm 3.0 - 4.0 / 2.7 - 3.8 cm LV Ejection Fraction MOD 4C 61.2 % LV Ejection Fraction 4C AL 61.8 % M-MODE Aortic Root Diameter MM 2.2 cm LA Systolic Diameter MM 2.9 cm LA Ao Ratio MM 1.3 AV Cusp Separation MM 1.4 cm DOPPLER AV Peak Velocity 136.0 cm/s AV Peak Gradient 7.4 mmHg AI Peak Velocity 327.0 cm/s AI Peak Gradient 42.8 mmHg AI Pressure Half Time 1905.0 ms LVOT Peak Velocity 102.0 cm/s LVOT Peak Gradient 4.2 mmHg AV Area Cont Eq pk 1.7 cm MV Area PHT 3.5 cm Mitral E Point Velocity 84.4 cm/s Mitral A Point Velocity 109.0 cm/s Mitral E to A Ratio 0.8 LV E' Lateral Velocity 5.3 cm/s Mitral E to LV E' Lateral Ratio 16.0 LV E' Septal Velocity 4.9 cm/s Mitral E to LV E' Septal Ratio 17.3 PV Peak Velocity 125.0 cm/s PV Peak Gradient 6.3 mmHg FINDINGS LEFT VENTRICLE The left ventricular systolic function is normal with an estimated ejection fraction in the range of 60-65%. Mild concentric left ventricular hypertrophy. Normal left ventricular size. No regional wall motion abnormalities are present. Doppler parameters are consistent with impaired left ventricular relaxtion (grade 1 diastolic dysfun ction). RIGHT VENTRICLE Normal right ventricular size and systolic function. LEFT ATRIUM The left atrial size is normal. RIGHT ATRIUM The right atrial size is normal. ATRIAL SEPTUM Normal atrial septal thickness AORTA The aortic root and proximal ascending aorta are normal in size on limited imaging. MITRAL VALVE Structurally normal mitral valve. No mitral valve stenosis or regurgitation. AORTIC VALVE Trileaflet aortic valve. Aortic valve sclerosis is present. Trace aortic valve regurgitation. No aortic valve stenosis. TRICUSPID VALVE Structurally normal tricuspid valve. No tricuspid valve stenosis or regurgitation. PULMONARY VALVE The pulmonary valve is not well visualized. VESSELS The inferior vena cava is normal in size. PERICARDIUM No pericardial effusion. Jason Low DO (Electronically Signed) Final Date:27 June 2018 18:20
== END 2018-06-27 16:39 | disposition home or self-care (01) ==
LOC: PHED 18:57 → PHEDA 18:57 → PH3 06-27 01:10
PROVIDERS: ADMIT Hospitalist; ATTEND Hospitalist
DX: M85.80 Other specified disorders of bone density and structure, unspecified site; E78.00 Pure hypercholesterolemia, unspecified; D72.819 Decreased white blood cell count, unspecified; S00.03XA Contusion of scalp, initial encounter; C50.919 Malignant neoplasm of unspecified site of unspecified female breast; Y92.009 Unspecified place in unspecified non-institutional (private) residence as the place of occurrence of the external cause; Z88.1 Allergy status to other antibiotic agents; Z90.49 Acquired absence of other specified parts of digestive tract; J06.9 Acute upper respiratory infection, unspecified; I10 Essential (primary) hypertension; R55 Syncope and collapse; R32 Unspecified urinary incontinence; Z80.0 Family history of malignant neoplasm of digestive organs; W01.0XXA Fall on same level from slipping, tripping and stumbling without subsequent striking against object, initial encounter